=== PATIENT | male | born 1960 | race American Indian/Alaskan Native ===

== ENCOUNTER 2018-06-01 18:24 | Emergency (ER) | payer BC ==
[2018-06-01 18:51] VITALS: O2SAT 98
[2018-06-01] MEDS ORDERED: Sodium Chloride 0.9% 1,000 ML IV STA (18:51)
[2018-06-01 19:31] LABS: BASO # 0.03 K/mm3 (0.0-2.0); BASO % 0.5 % (0.0-3.0); EOS # 0.1 (0.0-0.7); EOS % 0.8 % (1.5-5.0); GRAN # 3.2 (1.4-6.5); GRAN % 50.7 % (50.0-68.0); HEMOGLOBIN 15.2 g/dL (14.0-18.0); LYMPH # 2.4 (1.2-3.4); MEAN CELL VOLUME 92.4 fl (80.0-105.0); MEAN CORPUSCULAR HEMOGLOBIN 32.9 pg (25.0-35.0); MEAN CORPUSCULAR HGB CONC 35.6 g/dl (31.0-37.0); MEAN PLATELET VOLUME 9.1 fl (7.0-11.0); MONO # 0.6 (0.1-0.6); RBC 4.62 10^6/uL (3.5-6.1); RED CELL DISTRIBUTION WIDTH 12.3 % (11.5-14.5); WHITE BLOOD COUNT 6.3 10^3/ul (4.5-11.0)
[2018-06-01 19:32] LABS: URINE BILIRUBIN NEGATIVE (NEGATIVE); URINE BLOOD TRACE-INTACT (NEGATIVE); URINE GLUCOSE (UA) NEGATIVE (NEGATIVE); URINE LEUKOCYTE ESTERASE NEGATIVE Leu/uL (NEGATIVE); URINE PROTEIN NEGATIVE mg/dL (<30 mg/dL); URINE UROBILINOGEN 0.2 E.U./dL (<1 E.U./dL)
[2018-06-01 19:33] LABS: URINE APPEARANCE CLEAR (CLEAR); URINE COLOR LIGHT YELLOW (YELLOW)
[2018-06-01 19:38] LABS: URINE RBC 0 - 2 /hpf (0-2); URINE WBC NEGATIVE /hpf (0-6)
[2018-06-01 19:41] LABS: INR 0.95 (0.93-1.08); PARTIAL THROMBOPLASTIN TIME 31.4 Seconds (25.1-36.5); PROTHROMBIN TIME 10.8 SECONDS (9.4-12.5)
[2018-06-01 19:48] LABS: ALB/GLOB RATIO 1.3 (1.1-1.8); ALBUMIN 3.9 g/dL (3.0-4.8); ALT/SGPT 34 U/L (7-56); AST/SGOT 34 U/L (17-59); BLOOD UREA NITROGEN 11 mg/dL (7-21); CALCIUM 9.1 mg/dL (8.4-10.5); GFR AFRICAN-AMERICAN > 60; GFR NON-AFRICAN AMERICAN > 60
--- NOTE | 2018-06-01 19:53 | ED PDOC ---
Arrival/HPI - General Chief Complaint: High Blood Pressure Time Seen by Provider: 06/01/18 18:43 Historian: Patient - History of Present Illness Narrative History of Present Illness (Text): 06/01/18 19:43 58yo male with no pmhx who was referred to ED from Urgent care for dizziness, headache and elevated BP. Patient reports 2days history of dizziness and headache. States he went to today for the symptoms, and while there he was told his BP was elevated. He described dizziness, as lightheadedness. Denies focal weakness, nausea, vomiting, focal weakness, ripping/tearing upper back pain, visual changes, abdominal pain, chest pain, slurred speech, any other complaint. Past Medical History - Provider Review Nursing Documentation Reviewed: Yes - Infectious Disease Hx of Infectious Diseases: None - Cardiac Hx Cardiac Disorders: No Hx Hypertension: Yes - Pulmonary Hx Respiratory Disorders: No - HEENT Hx HEENT Disorder: No - Endocrine/Metabolic Hx Endocrine Disorders: No - Hematological/Oncological Hx Blood Disorders: No - Integumentary Hx Dermatological Disorder: No - Musculoskeletal/Rheumatological Hx Musculoskeletal Disorders: No - Gastrointestinal Hx Gastrointestinal Disorders: No - Genitourinary/Gynecological Hx Genitourinary Disorders: No - Psychiatric Hx Psychophysiologic Disorder: No Hx Substance Use: No - Surgical History Other/Comment: abd surgery - Anesthesia Hx Anesthesia: Yes Hx Anesthesia Reactions: No Family/Social History - Physician Review Nursing Documentation Reviewed: Yes Family/Social History: Unknown Family HX Smoking Status: Unknown If Ever Smoked Hx Alcohol Use: Yes Frequency of alcohol use: Socially Hx Substance Use: No Allergies/Home Meds Allergies/Adverse Reactions: Allergies No Known Allergies Allergy (Verified 06/01/18 18:42) Review of Systems - Physician Review All systems were reviewed & negative as marked: Yes - Review of Systems Constitutional: Normal Eyes: Normal ENT: Normal Respiratory: Normal Cardiovascular: Normal Gastrointestinal: Normal Genitourinary Male: Normal Musculoskeletal: Normal Skin: Normal Neurological: Headache, Dizziness. absent: Focal Weakness, Gait Changes, Speech Changes, Facial Droop Endocrine: Normal Hemo/Lymphatic: Normal Psychiatric: Normal Physical Exam Vital Signs Reviewed: Yes Vital Signs Temp Pulse Resp BP Pulse Ox 06/01/18 20:54 55 L 137/82 06/01/18 18:55 64 18 174/70 H 98 06/01/18 18:36 99 F 65 18 180/75 H 98 Temperature: Afebrile Blood Pressure: Hypertensive Pulse: Regular Respiratory Rate: Normal Appearance: Positive for: Well-Appearing, Non-Toxic, Comfortable Pain Distress: None Mental Status: Positive for: Alert and Oriented X 3 - Systems Exam Head: Present: Atraumatic, Normocephalic Pupils: Present: PERRL Extroacular Muscles: Present: EOMI Conjunctiva: Present: Normal Mouth: Present: Moist Mucous Membranes Neck: Present: Normal Range of Motion Respiratory/Chest: Present: Clear to Auscultation, Good Air Exchange. No: Respiratory Distress, Accessory Muscle Use Cardiovascular: Present: Regular Rate and Rhythm, Normal S1, S2. No: Murmurs Abdomen: No: Tenderness, Distention, Peritoneal Signs Back: Present: Normal Inspection Upper Extremity: Present: Normal Inspection. No: Cyanosis, Edema Lower Extremity: Present: Normal Inspection. No: Edema Neurological: Present: GCS=15, CN II-XII Intact, Speech Normal, Motor Func Grossly Intact, Normal Sensory Function, Normal Cerebellar Funct, Norm Deep Tendon Reflexes, Gait Normal, Memory Normal, Normal 2Pt Descrimination, Other ( No focal neurological deficit) Skin: Present: Warm, Dry, Normal Color. No: Rashes Psychiatric: Present: Alert, Oriented x 3, Normal Insight, Normal Concentration Medical Decision Making ED Course and Treatment: 06/01/18 21:04 PT presented for stated history. He was neurologically intact in ED. His lab was unremarkable EKG NSR with LVH @ 62bpm He was treated in ED with medication and in re evaluation he notes that his headache resolved. Head CT - Negative His BP improved. Result was DW the pt and he was advised to f/u with his PMD/ Neuro for further outpt evaluation. Amlodipine rx was given for his pressure. - Lab Interpretations Lab Results: 06/01/18 19:10 06/01/18 19:10 Lab Results 06/01/18 19:10: Sodium 143, Potassium 4.2, Chloride 104, Carbon Dioxide 31, Anion Gap 13, BUN 11, Creatinine 0.8, Est GFR ( Amer) > 60, Est GFR (Non- Af Amer) > 60, Random Glucose 106, Calcium 9.1, Total Bilirubin 0.4, AST 34, ALT 34, Alkaline Phosphatase 59, Lactate Dehydrogenase 661, Total Creatine Kinase 539 H, CK-MB (CK-2) 1.8, CK-MB (CK-2) % Cancelled, Troponin I < 0.01, Total Protein 6.9, Albumin 3.9, Globulin 3.0, Albumin/Globulin Ratio 1.3 06/01/18 19:10: Urine Color Light yellow, Urine Appearance Clear, Urine pH 6.0, Ur Specific [place] <= 1.005, Urine Protein Negative, Urine Glucose (UA) Negative, Urine Ketones Negative, Urine Blood Trace-intact H, Urine Nitrate Negative, Urine Bilirubin Negative, Urine Urobilinogen 0.2, Ur Leukocyte Esterase Negative, Urine RBC 0 - 2, Urine WBC Negative, Ur Epithelial Cells None , Urine Bacteria None 06/01/18 19:10: PT 10.8, INR 0.95, APTT 31.4 06/01/18 19:10: WBC 6.3, RBC 4.62, Hgb 15.2, Hct 42.7, MCV 92.4, MCH 32.9, MCHC 35.6, RDW 12.3, Plt Count 255, MPV 9.1, Gran % 50.7, Lymph % (Auto) 38.0 H, [place] % (Auto) 10.0 H, Eos % (Auto) 0.8 L, Baso % (Auto) 0.5, Gran # 3.20, Lymph # (Auto) 2.4, [place] # (Auto) 0.6, Eos # (Auto) 0.1, Baso # (Auto) 0.03 - RAD Interpretation Radiology Orders: 06/01/18 18:49 HEAD W/O CONTRAST [CT] Stat - Medication Orders Current Medication Orders: Discontinued Medications Acetaminophen (Tylenol 325mg Tab) 650 mg PO STAT STA Stop: 06/01/18 18:50 Last Admin: 06/01/18 19:06 Dose: 650 mg MAR Pain/Vitals Document 06/01/18 19:06 OCS (Rec: 06/01/18 19:07 OCS [facility] [place] Pain Reassessment Is This A Pain ReAssessment? No Sleep Is patient sleeping during reassessment? No Presence of Pain Presence of Pain Yes Pain Scale Used Pain Scale Used Numeric Location Pain Location Body Site Chest Description Constant Aggravating Factors ADL's Amlodipine Besylate (Norvasc) 5 mg PO STAT STA Stop: 06/01/18 19:54 Last Admin: 06/01/18 20:54 Dose: 5 mg MAR Pulse and Blood Pressure Document 06/01/18 20:54 OCS (Rec: 06/01/18 20:54 OCS [facility] [place] Pulse Pulse Rate (60-90 beats/min) 55 Blood Pressure Blood Pressure (100/60-150/90 mm Hg) 137/82 Metoclopramide HCl 10 mg/ (Sodium Chloride) 52 mls @ 200 mls/hr IV STAT STA Stop: 06/01/18 19:04 Last Admin: 06/01/18 19:07 Dose: 200 mls/hr eMAR Start Stop Document 06/01/18 19:07 OCS (Rec: 06/01/18 19:08 OCS [facility] [place] Intravenous Solution Start Date 06/01/18 Start Time 19:07 End Date 06/01/18 End time 19:22 Total Infusion Time 15 Sodium Chloride (Sodium Chloride 0.9%) 1,000 mls @ 999 mls/hr IV .Q1H1M STA Stop: 06/01/18 19:51 Last Admin: 06/01/18 19:08 Dose: 999 mls/hr eMAR Start Stop Document 06/01/18 19:08 OCS (Rec: 06/01/18 19:09 OCS [facility] [place] Intravenous Solution Start Date 06/01/18 Start Time 19:08 End Date 06/01/18 End time 20:09 Total Infusion Time 61 Disposition/Present on Arrival - Present on Arrival Any Indicators Present on Arrival: No History of DVT/PE: No History of Uncontrolled Diabetes: No Urinary Catheter: No History of Decub. Ulcer: No History Surgical Site Infection Following: None - Disposition Have Diagnosis and Disposition been Completed?: Yes Diagnosis: Dizziness, Headache, Hypertension Disposition: HOME/ ROUTINE Disposition Time: 21:00 Patient Plan: Discharge Condition: STABLE Discharge Instructions (ExitCare): Headache, Adult, High Blood Pressure in Adults, Controlling Your Blood Pressure Through Lifestyle, Dizziness, Nonvertigo , (DC) Additional Instructions: Follow up with your Doctor/Neurologist Return to ED for any new or worsening symptoms Prescriptions: amLODIPine [Norvasc] 5 mg PO DAILY #10 tab Referrals: Yaa Weinstein MD [Primary Care Provider] - Follow up with primary Forms: boo-box (Slovak)
[2018-06-01 20:06] LABS: TROPONIN I < 0.01 ng/mL
[2018-06-01 20:07] LABS: CK-MB 1.8 ng/mL (0.0-3.6)
[2018-06-01 20:54] VITALS: BP 137/82; PULSE 55
[2018-06-01 21:00] VITALS: RESP 19; TEMP 97.9
--- NOTE | 2018-06-02 08:23 | CT ---
Date of service: 06/01/2018 PROCEDURE: CT HEAD WITHOUT CONTRAST. HISTORY: headache/dizziness COMPARISON: None available. TECHNIQUE: Axial computed tomography images were obtained through the head/brain without intravenous contrast. Radiation dose: Total exam DLP = 1165 mGy-cm. This CT exam was performed using one or more of the following dose reduction techniques: Automated exposure control, adjustment of the mA and/or kV according to patient size, and/or use of iterative reconstruction technique. FINDINGS: HEMORRHAGE: No intracranial hemorrhage. BRAIN: No mass effect or edema. No atrophy or chronic microvascular ischemic changes. VENTRICLES: Unremarkable. No hydrocephalus. CALVARIUM: Unremarkable. PARANASAL SINUSES: Unremarkable as visualized. No significant inflammatory changes. MASTOID AIR CELLS: Unremarkable as visualized. No inflammatory changes. OTHER FINDINGS: The report concurs with the preliminary [facility] report IMPRESSION: No acute finding
--- NOTE | 2018-06-02 09:32 | CARD ---
APPROVED REPORT Date of service: 06/01/2018 EKG Measurement Heart [id number] <Conclusion> Normal sinus rhythm Moderate voltage criteria for LVH, may be normal variant Nonspecific T wave abnormality
== END 2018-06-01 21:03 | disposition home or self-care (01) ==
LOC: ED 18:24
DX: I10 Essential (primary) hypertension (principal); R42 Dizziness and giddiness; R51 Headache
CPT/HCPCS: 70450; 80053; 81001; 82550; 82553; 83615; 84484; 85025; 85610; 85730; 93005; 96360; 99284; J2765; J7030